=== PATIENT | female | born 1955 | race Caucasian/White ===

== ENCOUNTER 2019-09-06 17:42 | Observation (INO) | payer OTHER, MEDICARE ==
[2019-09-06 17:52] VITALS: BMI 41.5
--- NOTE | 2019-09-06 20:04 | PDOC ---
Attending Attestation - Resident Resident Name: Faheem Mcmillan - ED Attending Attestation I have performed the following: I have examined & evaluated the patient, The case was reviewed & discussed with the resident, I agree w/resident's findings & plan - HPI HPI: 09/07/19 00:35 see resident hpi - Physicial Exam PE: 09/07/19 00:35 agree with resident exam - Medical Decision Making 09/07/19 00:35 63-year-old female complaining of the worst headache of her life and lightheadedness CT scan of the brain showed no acute bleed Patient states she has a tendency to bleed easily, worsened when taking NSAIDs Discussion of lumbar puncture at the bedside, patient states that she does not want the procedure and is aware that there is a small chance of undiagnosed bleeding CTA of the brain showed no structural abnormality We will admit to medical service for observation further evaluation and neurology consult
[2019-09-06 21:15] LABS: BASO % 0.6 % (0-2.0); EOS % 0.4 % (0-4.5); HEMATOCRIT 42.6 % (32.4-45.2); HEMOGLOBIN 14.9 GM/dL (10.7-15.3); LYMPH % 15.5 % (8-40); MCH 29.6 pg (25.7-33.7); MCHC 35.1 g/dl (32.0-36.0); MEAN CELL VOLUME 84.3 fl (80-96); MEAN PLT VOLUME 8.6 fl (7.5-11.1); MONO % 5.8 % (3.8-10.2); NEUT % 77.7 % (42.8-82.8); PLATELET COUNT 244 K/MM3 (134-434); RBC 5.05 M/mm3 (3.60-5.2); RDW 13.9 % (11.6-15.6); WHITE BLOOD COUNT 5.9 K/mm3 (4.0-10.0)
--- NOTE | 2019-09-06 21:18 | PDOC ---
History of Present Illness - General Chief Complaint: Lightheaded Stated Complaint: HBP/NAUSEA Time Seen by Provider: 09/06/19 20:04 History Source: Patient Exam Limitations: No Limitations - History of Present Illness Initial Comments: 09/06/19 21:10 63 yo female pmh HTN, COPD and DM presents to the ED with PICHARDO, worst of her life , that woke her up this am with associated dizziness and N/V. Pt notes her son pasted away from a stroke at 34 years ol and noted bleeding problems (no known bleeding disorder diagnoses however, pt states if she takes ASA or NSAIDs she bleeds). Pt states she has had PICHARDO in the past but this one is much different due to persistent severity, N/V and dizziness. Pt states her BP at home was over 190 systolic. Denies recent illness, travel, weakness or sensory deficits on 1 side, confusion, CP, SOB, abdominal pain back pain, changes in bowel or bladder habits. Past History - Past Medical History Allergies/Adverse Reactions: Allergies Allergy/AdvReac Type Severity Reaction Status Date / Time pregabalin [From Lyrica] Allergy Intermediate Rash Verified 09/06/19 17:52 hydrochlorothiazide Allergy Rash Verified 09/06/19 17:52 valsartan [From Diovan] Allergy NEURO Verified 09/06/19 17:52 CHANGES Home Medications: Ambulatory Orders Losartan Potassium [Cozaar] 100 mg PO DAILY 10/10/14 metFORMIN HCL [Glucophage] 1,000 mg PO BID 10/10/14 Metoprolol Tartrate 75 mg PO BID 09/06/19 COPD: No Diabetes: Yes HTN: Yes - Surgical History Abdominal Surgery: Yes (bowel obstruction) Appendectomy: Yes - Psycho Social/Smoking Cessation Hx Smoking Status: No Smoking History: Never smoked Years of Tobacco Use: 0 Have you smoked in the past 12 months: No Number of Cigarettes Smoked Daily: 0 Cigars Per Day: 0 Hx Alcohol Use: No Drug/Substance Use Hx: No Substance Use Type: None Hx Substance Use Treatment: No Review of Systems - Review of Systems Constitutional: Yes: See HPI HEENTM: Yes: See HPI Respiratory: Yes: See HPI Cardiac (ROS): Yes: See HPI ABD/GI: Yes: See HPI : Yes: See HPI Musculoskeletal: Yes: See HPI Integumentary: Yes: See HPI Neurological: Yes: See HPI *Physical Exam - Vital Signs Last Vital Signs Temp Pulse Resp BP Pulse Ox 98 F 83 18 161/72 98 09/06/19 17:46 09/06/19 17:46 09/06/19 17:46 09/06/19 17:46 09/06/19 17:46 - Physical Exam General Appearance: Yes: Nourished, Appropriately Dressed. No: Apparent Distress HEENT: positive: EOMI, SARAH, Normal Voice Neck: positive: Supple. negative: Carotid bruit, Rigidity, Tender midline Respiratory/Chest: positive: Lungs Clear, Normal Breath Sounds. negative: Respiratory Distress, Accessory Muscle Use, Rapid RR, Crackles, Rales, Rhonchi, Stridor, Wheezing Cardiovascular: positive: Regular Rhythm, Regular Rate, S1, S2. negative: Edema , JVD, Murmur Vascular Pulses: Dorsalis-Pedis (R): 3+, Doralis-Pedis (L): 3+ Gastrointestinal/Abdominal: positive: Flat, Soft. negative: Pulsatile Mass, Distended, Guarding, Rebound, Tenderness Musculoskeletal: negative: CVA Tenderness Extremity: positive: Normal Capillary Refill, Normal Inspection, Normal Range of Motion Integumentary: positive: Normal Color, Dry, Warm Neurologic: positive: water/wastewater project manager II-XII NML intact, Fully Oriented, Alert, Normal Mood/ Affect, Normal Response, Motor Strength 5/5. negative: Facial Droop, Numbness, Sensory Deficit, Finger to Nose (normal), Confused, Disoriented ED Treatment Course - LABORATORY CBC & Chemistry Diagram: 09/07/19 06:15 09/07/19 06:15 - RADIOLOGY Radiology Studies Ordered: Category Date Time Status HEAD CT WITHOUT CONTRAST [CT] Stat CT Scan 09/06/19 21:03 Ordered CHEST X-RAY PORTABLE* [RAD] Stat Radiology 09/06/19 21:02 Ordered Medical Decision Making - Medical Decision Making 09/06/19 21:14 63 yo female pmh HTN, COPD and DM presents to the ED with PICHARDO, worst of her life , that woke her up this am with associated dizziness and N/V. Pt notes her son pasted away from a stroke at 34 years ol and noted bleeding problems (no known bleeding disorder diagnoses however, pt states if she takes ASA or NSAIDs she bleeds). Pt states she has had PICHARDO in the past but this one is much different due to persistent severity, N/V and dizziness. Pt states her BP at home was over 190 systolic. Denies recent illness, travel, weakness or sensory deficits on 1 side, confusion, CP, SOB, abdominal pain back pain, changes in bowel or bladder habits. pt hpi concerning for SAH or posterior bleed. Head Ct done immediately after evaluation, negative for acute bleed. Discussed LP with pt, shared decision making, states due to bleeding hx no LP at this time. WIll do CTA head and reassess s/o to night team Discharge - Discharge Information Problems reviewed: Yes Clinical Impression/Diagnosis: Lightheadedness, Headache Condition: Guarded Disposition: AGAINST MEDICAL ADVICE - Follow up/Referral - Patient Discharge Instructions - Post Discharge Activity
[2019-09-06 21:29] LABS: INR 0.93 (0.83-1.09)
[2019-09-06 21:32] LABS: ACTIVATED PTT 28.3 SECONDS (25.2-36.5)
[2019-09-06 21:52] LABS: ALBUMIN 3.8 g/dl (3.4-5.0); BILIRUBIN,TOTAL 0.5 mg/dL (0.2-1); BLOOD UREA NITROGEN 14.2 mg/dL (7-18); CALCIUM 9.7 mg/dL (8.5-10.1); CREATININE 0.7 mg/dL (0.55-1.3); TOT PROT 7.5 g/dl (6.4-8.2)
[2019-09-06 21:53] LABS: POTASSIUM 4.6 mmol/L (3.5-5.1)
[2019-09-06] MEDS ORDERED: metFORMIN HCL 500 MG TABLET (FP) PO ONE (21:55)
[2019-09-06] MEDS ORDERED: METOCLOPRAMIDE HCL INJECTION 10 MG/2 ML VIAL IVPUSH ONE (22:48)
[2019-09-06] MEDS ORDERED: ACETAMINOPHEN 1000 MG/100 ML VIAL (NON FORMULARY) IVPB ONE (22:48)
[2019-09-06] MEDS ORDERED: ACETAMINOPHEN INJECTION 100 ML IVPB ONE (23:48)
[2019-09-06] MEDS ORDERED: METOCLOPRAMIDE HCL INJECTION 10 MG/2 ML VIAL ONE (23:48)
--- NOTE | 2019-09-07 01:18 | HP ---
Admitting History and Physical - Primary Care Physician PCP: Callum Jain - Admission Chief Complaint: Headache, Dizziness History of Present Illness: This is a 63 y/o woman with a PMHx of HTN, DM, COPD, MARY. Who presents to the ED with dizziness and headache x today. Patient describes the headache as sharp/ severe with nausea. Patient reports increased dizziness with movement. Patient denies recent fall or trauma. Patient denies fever, chills, SOB, CP, palpitations, AP, V/D, constipation, dysuria. Patient reports familial hx CVA. ED Course was noted for: (1) Head CT- moderate volume/loss, no evidence of acute intracranial pathology. moderate deviation of nasal septum towards the right (2) Head CTA- widely patent and normal caliber arteries in the anterior and posterior circulation with no evidence of focal aneursym (3) EKG- NSR RBBB, T wave abnormality History Source: Patient Limitations to Obtaining History: No Limitations - Past Medical History Cardiovascular: Yes: HTN Pulmonary: Yes: COPD Gastrointestinal: Yes: Other (SBO) Endocrine: Yes: Diabetes Mellitus - Past Surgical History Past Surgical History: Yes: Appendectomy, Hysterectomy - Smoking History Smoking history: Never smoked Have you smoked in the past 12 months: No Aproximately how many cigarettes per day: 0 - Alcohol/Substance Use Hx Alcohol Use: No History of Substance Use: reports: None - Social History Usual Living Arrangement: Yes: Other (family) ADL: Independent History of Recent Travel: No Home Medications - Allergies Allergies/Adverse Reactions: Allergies Allergy/AdvReac Type Severity Reaction Status Date / Time pregabalin [From Lyrica] Allergy Intermediate Rash Verified 09/06/19 17:52 hydrochlorothiazide Allergy Rash Verified 09/06/19 17:52 valsartan [From Diovan] Allergy NEURO Verified 09/06/19 17:52 CHANGES - Home Medications Home Medications: Ambulatory Orders Losartan Potassium [Cozaar] 100 mg PO DAILY 10/10/14 metFORMIN HCL [Glucophage] 1,000 mg PO BID 10/10/14 Metoprolol Tartrate 75 mg PO BID 09/06/19 Family Medical History Family Hx Nuerologic Problems: Son (CVA- age in 30's) Review of Systems - Review of Systems Constitutional: reports: No Symptoms Eyes: reports: No Symptoms HENT: reports: No Symptoms Neck: reports: No Symptoms Cardiovascular: reports: No Symptoms Respiratory: reports: No Symptoms Gastrointestinal: reports: Nausea Genitourinary: reports: No Symptoms Breasts: reports: No Symptoms Reported Musculoskeletal: reports: No Symptoms Integumentary: reports: No Symptoms Neurological: reports: Dizziness, Headache, Syncope (Pre) Endocrine: reports: No Symptoms Hematology/Lymphatic: reports: No Symptoms Psychiatric: reports: No Symptoms Pain Intensity: 4 Physical Examination Vital Signs: Vital Signs Temperature 98.2 F 09/06/19 21:52 Pulse Rate 81 09/06/19 21:52 Respiratory Rate 15 09/06/19 21:52 Blood Pressure 162/90 09/06/19 21:52 O2 Sat by Pulse Oximetry (%) 97 09/06/19 21:52 Constitutional: Yes: Well Nourished, No Distress, Calm, Obese Eyes: Yes: WNL, Conjunctiva Clear, EOM Intact, PERRL HENT: Yes: WNL, Atraumatic, Normocephalic Neck: Yes: WNL, Supple, Trachea Midline Cardiovascular: Yes: WNL, Regular Rate and Rhythm, S1, S2 Respiratory: Yes: Diminished Gastrointestinal: Yes: WNL, Normal Bowel Sounds, Soft, Abdomen, Obese ...Rectal Exam: Yes: Deferred Renal/: Yes: WNL Breast(s): Yes: WNL Musculoskeletal: Yes: WNL Extremities: Yes: WNL Edema: Yes Edema: LLE: Trace, RLE: Trace Peripheral Pulses WNL: Yes Integumentary: Yes: WNL Neurological: Yes: WNL, Alert, Oriented, Cran Nerves II-XII Intact ...Motor Strength: WNL Psychiatric: Yes: WNL, Alert, Oriented Labs: CBC, BMP 09/06/19 20:20 09/06/19 20:20 Laboratory Results - last 24 hr 09/06/19 09/06/19 09/06/19 20:20 20:20 20:20 WBC 5.9 RBC 5.05 Hgb 14.9 Hct 42.6 MCV 84.3 MCH 29.6 MCHC 35.1 RDW 13.9 Plt Count 244 MPV 8.6 Absolute Neuts (auto) 4.6 Neutrophils % 77.7 D Lymphocytes % 15.5 D Monocytes % 5.8 Eosinophils % 0.4 Basophils % 0.6 Nucleated RBC % 0 PT with INR 11.00 INR 0.93 PTT (Actin FS) 28.3 Sodium Potassium Chloride Carbon Dioxide Anion Gap BUN Creatinine Est GFR (CKD-EPI)AfAm Est GFR (CKD-EPI)NonAf Random Glucose Calcium Total Bilirubin AST ALT Alkaline Phosphatase Creatine Kinase 121 Troponin I < 0.02 Total Protein Albumin 09/06/19 20:20 WBC RBC Hgb Hct MCV MCH MCHC RDW Plt Count MPV Absolute Neuts (auto) Neutrophils % Lymphocytes % Monocytes % Eosinophils % Basophils % Nucleated RBC % PT with INR INR PTT (Actin FS) Sodium 136 Potassium 4.6 Chloride 101 Carbon Dioxide 26 Anion Gap 9 BUN 14.2 Creatinine 0.7 Est GFR (CKD-EPI)AfAm 106.87 Est GFR (CKD-EPI)NonAf 92.21 Random Glucose 193 H Calcium 9.7 Total Bilirubin 0.5 AST 38 H ALT 36 Alkaline Phosphatase 92 Creatine Kinase Troponin I Total Protein 7.5 Albumin 3.8 Intake & Output 09/04/19 09/05/19 09/06/19 09/07/19 23:59 23:59 23:59 23:59 Weight 113.398 kg Current Medications Generic Name Dose Route Start Last Admin Trade Name Freq PRN Reason Stop Dose Admin Losartan Potassium 100 mg 09/07/19 10:00 Cozaar - PO DAILY WEST Metoprolol Tartrate 75 mg 09/07/19 10:00 Lopressor - PO BID WEST Imaging - Results Chest X-ray: Report Reviewed, Image Reviewed Cat Scan: Report Reviewed, Image Reviewed EKG: Image Reviewed Problem List - Problems (1) Pre-syncope Assessment/Plan: r/o Stroke vs Arrhythmia Continue cardiac monitoring Head CT- moderate volume/loss, no evidence of acute intracranial pathology Head CTA- widely patent and normal caliber arteries in the anterior and posterior circulation with no evidence of focal aneursym Appreciate Neurology consult Neurochecks Orthostatics Fall Precautions Monitor CBC, BMP Code(s): R55 - SYNCOPE AND COLLAPSE (2) Headache Assessment/Plan: See above Tylenol prn Code(s): R51 - HEADACHE (3) COPD (chronic obstructive pulmonary disease) Assessment/Plan: stable No acute flair Duonebs prn O2, prn Code(s): J44.9 - CHRONIC OBSTRUCTIVE PULMONARY DISEASE, UNSPECIFIED (4) HTN (hypertension) Assessment/Plan: stable Monitor BP Continue home meds Monitor renal function Code(s): I10 - ESSENTIAL (PRIMARY) HYPERTENSION (5) Diabetes mellitus Assessment/Plan: stable BGMs Hold Metformin secondary to CTA ISS Code(s): E11.9 - TYPE 2 DIABETES MELLITUS WITHOUT COMPLICATIONS Assessment/Plan This is a 63 y/o woman with a PMHx of HTN, DM, COPD, MARY (on CPAP). Placed in Telemetry Observation for Presyncope, Headache for further evaluation of their emergent condition. Plan: See Problem List FEN PO fluids as tolerated Replete lytes prn Low Na, Diabetic Diet DVT ppx OOB SCDs Consider AC if LOS> 48hrs Dispo: Observation Visit type - Emergency Visit Emergency Visit: Yes ED Registration Date: 09/06/19 Care time: The patient presented to the Emergency Department on the above date and was hospitalized for further evaluation of their emergent condition. - New Patient This patient is new to me today: Yes Date on this admission: 09/07/19 - Critical Care Critical Care patient: No
[2019-09-07] MEDS ORDERED: ACETAMINOPHEN 325 MG TABLET (FP) PO PRN (01:25)
[2019-09-07 06:54] LABS: BASO % 0.7 % (0-2.0); EOS % 0.6 % (0-4.5); LYMPH % 30.5 % (8-40); MCHC 34.2 g/dl (32.0-36.0); MEAN CELL VOLUME 84.8 fl (80-96); MEAN PLT VOLUME 8.1 fl (7.5-11.1); NEUT % 54.2 % (42.8-82.8); PLATELET COUNT 218 K/MM3 (134-434); RBC 4.83 M/mm3 (3.60-5.2); RDW 13.5 % (11.6-15.6); WHITE BLOOD COUNT 5.2 K/mm3 (4.0-10.0)
[2019-09-07 07:18] LABS: BLOOD UREA NITROGEN 17.4 mg/dL (7-18); CALCIUM 9.1 mg/dL (8.5-10.1); CREATININE 0.7 mg/dL (0.55-1.3); POTASSIUM 3.4 mmol/L (3.5-5.1)
--- NOTE | 2019-09-07 08:35 | CONSULT ---
Consult - text type - Consultation Consultation Note: Neurology - Primary Care Physician PCP: Callum Jain - Admission Chief Complaint: Headache, Dizziness History Source: Patient Limitations to Obtaining History: No Limitations - History of Present Illness 63 yo female pmh HTN, COPD and DM presented to the ED with PICHARDO, worst of her life , that woke her up with associated dizziness and N/V. Pt noted her son from a stroke at 34 years old and noted bleeding problems (no known bleeding disorder diagnoses however, pt stated if she takes ASA or NSAIDs she bleeds). Pt stated she has had PICHARDO in the past but this one was much different due to persistent severity, N/V and dizziness. Pt stated her BP at home was over 190 systolic. Denied recent illness, travel, weakness or sensory deficits on 1 side, confusion, CP, SOB, abdominal pain back pain, changes in bowel or bladder habits. Ct of head performed and demonstrated moderate volume loss without evidence of acute intracranial pathology. CTA of Head completed and awaiting official report. There was concern regarding possible subarachnoid hemorrhage which was the reason for having the CTA. However, her headaches significantly improved and is essentially resolved this morning. Unlikely to have subarachnoid hemorrhage at this point, lumbar puncture does not seem necessary. Can continue evaluation for presyncopal sensations and cardiac workup. - Past Medical History Cardiovascular: Yes: HTN Pulmonary: Yes: COPD Gastrointestinal: Yes: Other (SBO) Endocrine: Yes: Diabetes Mellitus - Past Surgical History Past Surgical History: Yes: Appendectomy, Hysterectomy - Smoking History Smoking history: Never smoked Have you smoked in the past 12 months: No Aproximately how many cigarettes per day: 0 - Alcohol/Substance Use Hx Alcohol Use: No History of Substance Use: reports: None - Social History Usual Living Arrangement: Yes: Other (family) ADL: Independent History of Recent Travel: No Family Medical History Family History: HTN Review of Systems - Review of Systems Constitutional: reports: No Symptoms Eyes: reports: No Symptoms HENT: reports: No Symptoms Neck: reports: No Symptoms Cardiovascular: reports: No Symptoms Respiratory: reports: No Symptoms Gastrointestinal: reports: No Symptoms Genitourinary: reports: No Symptoms Breasts: reports: No Symptoms Reported Musculoskeletal: reports: No Symptoms Integumentary: reports: No Symptoms Neurological: reports: Dizziness, Headache, Syncope (Pre) Endocrine: reports: No Symptoms Hematology/Lymphatic: reports: No Symptoms Psychiatric: reports: No Symptoms Pain Intensity: 4 Home Medications - Allergies Allergies/Adverse Reactions: Allergies Allergy/AdvReac Type Severity Reaction Status Date / Time pregabalin [From Lyrica] Allergy Intermediate Rash Verified 09/06/19 17:52 hydrochlorothiazide Allergy Rash Verified 09/06/19 17:52 valsartan [From Diovan] Allergy NEURO Verified 09/06/19 17:52 CHANGES - Home Medications Home Medications: Ambulatory Orders Losartan Potassium [Cozaar] 100 mg PO DAILY 10/10/14 metFORMIN HCL [Glucophage] 1,000 mg PO BID 10/10/14 Metoprolol Tartrate 75 mg PO BID 09/06/19 Active Medications Acetaminophen (Tylenol -) 650 mg PO Q6H PRN PRN Reason: PAIN LEVEL 6-10 Losartan Potassium (Cozaar -) 100 mg PO DAILY [facility] Metoprolol Tartrate 50 mg/ (Metoprolol Tartrate 25 mg) 75 mg PO BID [facility] Physical Examination Vital Signs: Vital Signs Period Temp Pulse Resp BP Sys/Verdugo Pulse Ox Last 24 Hr 98 F-98.8 F 69-83 15-18 129-162/63-90 95-98 Constitutional: Yes: Well Nourished, No Distress, Calm, Obese Eyes: Yes: WNL, Conjunctiva Clear, EOM Intact, PERRL HENT: Yes: WNL, Atraumatic, Normocephalic Neck: Yes: WNL, Supple, Trachea Midline Cardiovascular: Yes: WNL, Regular Rate and Rhythm, S1, S2 Respiratory: Yes: Diminished Gastrointestinal: Yes: WNL, Normal Bowel Sounds, Soft, Abdomen, Obese ...Rectal Exam: Yes: Deferred Renal/: Yes: WNL Breast(s): Yes: WNL Musculoskeletal: Yes: WNL Extremities: Yes: WNL Edema: Yes Edema: LLE: Trace, RLE: Trace Peripheral Pulses WNL: Yes Integumentary: Yes: WNL Neurological: Yes: WNL, Alert, Oriented, Cran Nerves II-XII Intact ...Motor Strength: WNL Psychiatric: Yes: WNL, Alert, Oriented Labs: CBCD WBC 5.2 K/mm3 (4.0-10.0) 09/07/19 06:15 RBC 4.83 M/mm3 (3.60-5.2) 09/07/19 06:15 Hgb 14.0 GM/dL (10.7-15.3) 09/07/19 06:15 Hct 41.0 % (32.4-45.2) 09/07/19 06:15 MCV 84.8 fl (80-96) 09/07/19 06:15 MCHC 34.2 g/dl (32.0-36.0) 09/07/19 06:15 RDW 13.5 % (11.6-15.6) 09/07/19 06:15 Plt Count 218 K/MM3 (134-434) 09/07/19 06:15 MPV 8.1 fl (7.5-11.1) 09/07/19 06:15 CMP Sodium 139 mmol/L (136-145) 09/07/19 06:15 Potassium 3.4 mmol/L (3.5-5.1) L 09/07/19 06:15 Chloride 102 mmol/L (98-107) 09/07/19 06:15 Carbon Dioxide 30 mmol/L (21-32) 09/07/19 06:15 Anion Gap 7 MMOL/L (8-16) L 09/07/19 06:15 BUN 17.4 mg/dL (7-18) 09/07/19 06:15 Creatinine 0.7 mg/dL (0.55-1.3) 09/07/19 06:15 Random Glucose 147 mg/dL (74-106) H 09/07/19 06:15 Calcium 9.1 mg/dL (8.5-10.1) 09/07/19 06:15 Total Bilirubin 0.5 mg/dL (0.2-1) 09/06/19 20:20 AST 38 U/L (15-37) H 09/06/19 20:20 ALT 36 U/L (13-61) 09/06/19 20:20 Alkaline Phosphatase 92 U/L (45-117) 09/06/19 20:20 Total Protein 7.5 g/dl (6.4-8.2) 09/06/19 20:20 Albumin 3.8 g/dl (3.4-5.0) 09/06/19 20:20 CARDIAC ENZYMES Creatine Kinase 121 U/L (26-192) 09/06/19 20:20 Troponin I < 0.02 ng/ml (0.00-0.05) 09/06/19 20:20 Assessment/Plan 63 yo female pmh HTN, COPD and DM presented to the ED with PICHARDO, worst of her life , that woke her up with associated dizziness and N/V. Pt noted her son from a stroke at 34 years old and noted bleeding problems (no known bleeding disorder diagnoses however, pt stated if she takes ASA or NSAIDs she bleeds). Pt stated she has had PICHARDO in the past but this one was much different due to persistent severity, N/V and dizziness. Pt stated her BP at home was over 190 systolic. Denied recent illness, travel, weakness or sensory deficits on 1 side, confusion, CP, SOB, abdominal pain back pain, changes in bowel or bladder habits. Ct of head performed and demonstrated moderate volume loss without evidence of acute intracranial pathology. CTA of Head completed and awaiting official report. There was concern regarding possible subarachnoid hemorrhage which was the reason for having the CTA. However, her headaches significantly improved and is essentially resolved this morning. Unlikely to have subarachnoid hemorrhage at this point, lumbar puncture does not seem necessary. Can continue evaluation for presyncopal sensations and cardiac workup. Monitor blood pressure, maintain less than 140/90. Monitor glucose, maintain euglycemic range. Recommend continued hydration and cognitive rest. Follow-up CTA results/report. Can take Tylenol or Fioricet for headache if needed. Not more than 3X per day or 3 days per week, which can precipitate rebound and medication overuse headaches.
[2019-09-07] MEDS ORDERED: METOPROLOL TARTRATE 25 MG TABLET (FP) ONE (09:30)
[2019-09-07] MEDS ORDERED: LOSARTAN POTASSIUM 50 MG TABLET (FP) ONE (09:30)
[2019-09-07] MEDS ORDERED: METOPROLOL TARTRATE 50 MG TABLET (FP) ONE (09:30)
[2019-09-07] MEDS: METOPROLOL TARTRATE 50 MG, METOPROLOL TARTRATE 25 MG PO SCH ×2 (09:33→22:41)
--- NOTE | 2019-09-07 09:52 | PN ---
Progress Note, Physician Chief Complaint: Presyncope Headache History of Present Illness: Previous notes and events reviewed awake and alert NAD denies complaints of headache, visual disturbance, or dizziness no reports of nausea or vomiting - Current Medication List Current Medications: Active Medications Acetaminophen (Tylenol -) 650 mg PO Q6H PRN PRN Reason: PAIN LEVEL 6-10 Losartan Potassium (Cozaar -) 100 mg PO DAILY [facility] Last Admin: 09/07/19 09:33 Dose: 100 mg Metoprolol Tartrate 50 mg/ (Metoprolol Tartrate 25 mg) 75 mg PO BID [facility] Last Admin: 09/07/19 09:33 Dose: 75 mg - Objective Vital Signs: Vital Signs Temperature 98.8 F 09/07/19 06:00 Pulse Rate 79 09/07/19 06:00 Respiratory Rate 16 09/07/19 06:00 Blood Pressure 154/84 09/07/19 06:00 O2 Sat by Pulse Oximetry (%) 95 09/07/19 09:03 Constitutional: Yes: No Distress, Calm, Obese Eyes: Yes: Conjunctiva Clear HENT: Yes: Atraumatic Cardiovascular: Yes: Regular Rate and Rhythm Respiratory: Yes: Regular, CTA Bilaterally Gastrointestinal: Yes: Normal Bowel Sounds, Soft, Abdomen, Obese Musculoskeletal: Yes: Muscle Weakness Extremities: Yes: WNL Edema: No Neurological: Yes: Alert, Oriented, Other (no facial droop, no slurred speech, equal bilateral strength shipping manager) Psychiatric: Yes: Alert, Oriented Labs: CBC, BMP 09/07/19 06:15 09/07/19 06:15 INR, PTT INR 0.93 (0.83-1.09) 09/06/19 20:20 Problem List - Problems (1) Pre-syncope Assessment/Plan: -Neurology on board -Head CT scan shows moderate volume loss without CT evidence of acute intracranial pathology, moderate deviation of the nasal septum towards the right -Head CTA official result pending -Neuro checks q4h -Carotid US -troponin neg x 1 -tele monitoring -fall precaution -lipid panel -Cardiology consult Code(s): R55 - SYNCOPE AND COLLAPSE (2) Headache Assessment/Plan: -Neurology on board -Head CT scan shows moderate volume loss without CT evidence of acute intracranial pathology, moderate deviation of the nasal septum towards the right -Head CTA official result pending -Neuro checks q4h -Carotid US -pain control Code(s): R51 - HEADACHE (3) HTN (hypertension) Assessment/Plan: -Losartan, Metoprolol -low Na diet Code(s): I10 - ESSENTIAL (PRIMARY) HYPERTENSION (4) Diabetes mellitus Assessment/Plan: -Metformin -BGM ACHS -ISS Code(s): E11.9 - TYPE 2 DIABETES MELLITUS WITHOUT COMPLICATIONS (5) COPD (chronic obstructive pulmonary disease) Assessment/Plan: -Pulmonary consult -keep SpO2 >90% -O2 via [place] Code(s): J44.9 - CHRONIC OBSTRUCTIVE PULMONARY DISEASE, UNSPECIFIED Assessment/Plan see problem list
[2019-09-07] MEDS ORDERED: METOPROLOL TARTRATE 50 MG TABLET (FP) PO SCH (10:00)
[2019-09-07] MEDS ORDERED: LOSARTAN POTASSIUM 50 MG TABLET (FP) PO SCH (10:00)
--- NOTE | 2019-09-07 10:36 | EKG ---
Test Reason : Blood Pressure : / mmHG Vent. Rate : 077 BPM Atrial Rate : 077 BPM P-R Int : 150 ms QRS Dur : 152 ms QT Int : 454 ms P-R-T Axes : 059 039 007 degrees QTc Int : 513 ms POOR DATA QUALITY, INTERPRETATION MAY BE ADVERSELY AFFECTED NORMAL SINUS RHYTHM POSSIBLE LEFT ATRIAL ENLARGEMENT RIGHT BUNDLE BRANCH BLOCK T WAVE ABNORMALITY, CONSIDER LATERAL ISCHEMIA ABNORMAL ECG WHEN COMPARED WITH ECG OF 16-JUL-2013 17:23, NO SIGNIFICANT CHANGE WAS FOUND Confirmed by NGHIA MORTON MD ([id number]) on 09/07/2019 10:35:47 AM Referred By: Confirmed By:NGHIA MORTON MD
[2019-09-07 10:48] VITALS: TEMP 98.2
[2019-09-07] MEDS: INSULIN SLIDING SCALE (NOVOLOG) 1 VIAL SQ SCH ×3 (11:31→22:41)
--- NOTE | 2019-09-07 15:40 | CON.PULM ---
Consult Consult Specialty:: PULMONARY Referred by:: Dr Barrera Reason for Consultation:: COPD - History of Present Illness Chief Complaint: headache History of Present Illness: 63yo female with h/o HTN, DM, COPD who was admitted with dizziness and headache. Found to have elevated blood pressures. Denies shortness of breath or chest pain. No fevers, chills or sweats. No recent sicknesses. Imaging unremarkable and blood pressures have improved. She reports feeling much improved, back to baseline. - History Source History Provided By: Patient, Medical Record Limitations to Obtaining History: No Limitations - Past Medical History Cardio/Vascular: Yes: HTN Pulmonary: Yes: COPD Gastrointestinal: Yes: Other (SBO) Endocrine: Yes: Diabetes Mellitus - Past Surgical History Past Surgical History: Yes: Appendectomy, Hysterectomy - Alcohol/Substance Use Hx Alcohol Use: No History of Substance Use: reports: None - Smoking History Smoking history: Never smoked Have you smoked in the past 12 months: No Aproximately how many cigarettes per day: 0 - Social History ADL: Independent History of Recent Travel: No Home Medications - Allergies Allergies/Adverse Reactions: Allergies Allergy/AdvReac Type Severity Reaction Status Date / Time pregabalin [From Lyrica] Allergy Intermediate Rash Verified 09/06/19 17:52 hydrochlorothiazide Allergy Rash Verified 09/06/19 17:52 valsartan [From Diovan] Allergy NEURO Verified 09/06/19 17:52 CHANGES - Home Medications Home Medications: Ambulatory Orders Losartan Potassium [Cozaar] 100 mg PO DAILY 10/10/14 metFORMIN HCL [Glucophage] 1,000 mg PO BID 10/10/14 Metoprolol Tartrate 75 mg PO BID 09/06/19 Review of Systems - Review of Systems Constitutional: denies: Chills, Fever Eyes: denies: Recent Change in Vision HENT: denies: Nasal Congestion, Throat Pain Neck: denies: Stiffness, Tenderness Cardiovascular: denies: Chest Pain, Shortness of Breath Respiratory: denies: Cough, Wheezing Gastrointestinal: reports: Nausea, Vomiting Genitourinary: denies: Dysuria, Hematuria Neurological: reports: Dizziness, Headache Endocrine: denies: Unexplained Weight Loss Physical Exam Vital Sings: Vital Signs Temperature 98.2 F 09/07/19 10:47 Pulse Rate 71 09/07/19 10:47 Respiratory Rate 16 09/07/19 10:47 Blood Pressure 147/73 09/07/19 10:47 O2 Sat by Pulse Oximetry (%) 100 09/07/19 10:47 Constitutional: Yes: Calm Eyes: Yes: Conjunctiva Clear, EOM Intact HENT: Yes: Atraumatic, Normocephalic Neck: Yes: Supple, Trachea Midline Cardiovascular: Yes: Regular Rate and Rhythm Respiratory: Yes: Diminished (decreased breath sounds at the bases) ...Clubbing: No Gastrointestinal: Yes: Normal Bowel Sounds, Soft. No: Tenderness Edema: No Neurological: Yes: Alert, Oriented Labs: CBC, BMP 09/07/19 06:15 09/07/19 06:15 Imaging - Results Chest X-ray: Report Reviewed, Image Reviewed (cardiomegaly, no infiltrates) Problem List - Problems (1) Headache Code(s): R51 - HEADACHE Assessment/Plan Headache improved HTN DM COPD - inhaled bronchodilators as needed - BP control - neuro work up - DVT prophylaxis Thank you for this consult Wilfredo Gómez MD
[2019-09-07] MEDS ORDERED: metFORMIN HCL 500 MG TABLET (FP) PO SCH (16:30)
[2019-09-07 22:34] VITALS: BP 161/70; PULSE 93
--- NOTE | 2019-09-07 23:12 | HOSP ---
Subjective - Review of Symptoms Events since last encounter: Hospitalist Encounter Notified by the evening nursing warehouse traffic supervisor and primary RN, that the patient was told she was being discharged earlier today by the primary [employer] [employer]. After review of the notes, no discharge indicated. Call placed to Bro[facility] Jade [employer], left voice message with my cell number. No response Was called again by the nursing warehouse traffic supervisor patient is now adamant on leaving AMA I went down to the ED spoke with the patient, who is refusing further care. Attempts made to have the patient reconsider- unsuccessful Risks and dangers discussed with patient, who verbalized understanding. Patient signed AMA Patient left the ED with her cane, with the evening nursing warehouse traffic supervisor. Physical Examination Vital Signs: Vital Signs Temperature 98.2 F 09/07/19 18:00 Pulse Rate 93 H 09/07/19 22:33 Respiratory Rate 18 09/07/19 22:33 Blood Pressure 161/70 09/07/19 22:33 O2 Sat by Pulse Oximetry (%) 96 09/07/19 22:33 Labs: CBC, BMP 09/07/19 06:15 09/07/19 06:15
--- NOTE | 2019-09-08 08:48 | PN ---
Progress Note (short form) - Note Progress Note: Neurology - Primary Care Physician PCP: Callum Jain - Admission Chief Complaint: Headache, Dizziness History Source: Patient Limitations to Obtaining History: No Limitations - History of Present Illness 63 yo female pmh HTN, COPD and DM presented to the ED with PICHARDO, worst of her life , that woke her up with associated dizziness and N/V. Pt noted her son from a stroke at 34 years old and noted bleeding problems (no known bleeding disorder diagnoses however, pt stated if she takes ASA or NSAIDs she bleeds). Pt stated she has had PICHARDO in the past but this one was much different due to persistent severity, N/V and dizziness. Pt stated her BP at home was over 190 systolic. Denied recent illness, travel, weakness or sensory deficits on 1 side, confusion, CP, SOB, abdominal pain back pain, changes in bowel or bladder habits. Ct of head performed and demonstrated moderate volume loss without evidence of acute intracranial pathology. CTA of Head completed and awaiting official report. There was concern regarding possible subarachnoid hemorrhage which was the reason for having the CTA. However, her headaches significantly improved and is essentially resolved this morning. Unlikely to have subarachnoid hemorrhage at this point, lumbar puncture does not seem necessary. Can continue evaluation for presyncopal sensations and cardiac workup. Active Medications Acetaminophen (Tylenol -) 650 mg PO Q6H PRN PRN Reason: PAIN LEVEL 6-10 Insulin Aspart (Novolog Vial Sliding Scale -) 1 vial SQ ACHS [facility]; Protocol Last Admin: 09/07/19 22:41 Dose: Not Given Losartan Potassium (Cozaar -) 100 mg PO DAILY [facility] Last Admin: 09/07/19 09:33 Dose: 100 mg Metformin HCl (Glucophage -) 1,000 mg PO BIDAC [facility] Last Admin: 09/07/19 18:25 Dose: Not Given Metoprolol Tartrate 50 mg/ (Metoprolol Tartrate 25 mg) 75 mg PO BID [facility] Last Admin: 09/07/19 22:41 Dose: Not Given Physical Examination Vital Signs: Vital Signs Period Temp Pulse Resp BP Sys/Verdugo Pulse Ox Last 24 Hr 98.2 F-98.2 F 71-93 16-18 140-161/70-73 95-100 Constitutional: Yes: Well Nourished, No Distress, Calm, Obese Eyes: Yes: WNL, Conjunctiva Clear, EOM Intact, PERRL HENT: Yes: WNL, Atraumatic, Normocephalic Neck: Yes: WNL, Supple, Trachea Midline Cardiovascular: Yes: WNL, Regular Rate and Rhythm, S1, S2 Respiratory: Yes: Diminished Gastrointestinal: Yes: WNL, Normal Bowel Sounds, Soft, Abdomen, Obese ...Rectal Exam: Yes: Deferred Renal/: Yes: WNL Breast(s): Yes: WNL Musculoskeletal: Yes: WNL Extremities: Yes: WNL Edema: Yes Edema: LLE: Trace, RLE: Trace Peripheral Pulses WNL: Yes Integumentary: Yes: WNL Neurological: Yes: WNL, Alert, Oriented, Cran Nerves II-XII Intact ...Motor Strength: WNL Psychiatric: Yes: WNL, Alert, Oriented Labs: CBCD WBC 5.2 K/mm3 (4.0-10.0) 09/07/19 06:15 RBC 4.83 M/mm3 (3.60-5.2) 09/07/19 06:15 Hgb 14.0 GM/dL (10.7-15.3) 09/07/19 06:15 Hct 41.0 % (32.4-45.2) 09/07/19 06:15 MCV 84.8 fl (80-96) 09/07/19 06:15 MCHC 34.2 g/dl (32.0-36.0) 09/07/19 06:15 RDW 13.5 % (11.6-15.6) 09/07/19 06:15 Plt Count 218 K/MM3 (134-434) 09/07/19 06:15 MPV 8.1 fl (7.5-11.1) 09/07/19 06:15 CMP Sodium 139 mmol/L (136-145) 09/07/19 06:15 Potassium 3.4 mmol/L (3.5-5.1) L 09/07/19 06:15 Chloride 102 mmol/L (98-107) 09/07/19 06:15 Carbon Dioxide 30 mmol/L (21-32) 09/07/19 06:15 Anion Gap 7 MMOL/L (8-16) L 09/07/19 06:15 BUN 17.4 mg/dL (7-18) 09/07/19 06:15 Creatinine 0.7 mg/dL (0.55-1.3) 09/07/19 06:15 Random Glucose 147 mg/dL (74-106) H 09/07/19 06:15 Calcium 9.1 mg/dL (8.5-10.1) 09/07/19 06:15 Total Bilirubin 0.5 mg/dL (0.2-1) 09/06/19 20:20 AST 38 U/L (15-37) H 09/06/19 20:20 ALT 36 U/L (13-61) 09/06/19 20:20 Alkaline Phosphatase 92 U/L (45-117) 09/06/19 20:20 Total Protein 7.5 g/dl (6.4-8.2) 09/06/19 20:20 Albumin 3.8 g/dl (3.4-5.0) 09/06/19 20:20 CARDIAC ENZYMES Creatine Kinase 121 U/L (26-192) 09/06/19 20:20 Troponin I < 0.02 ng/ml (0.00-0.05) 09/06/19 20:20 Assessment/Plan 63 yo female pmh HTN, COPD and DM presented to the ED with PICHARDO, worst of her life , that woke her up with associated dizziness and N/V. Pt noted her son from a stroke at 34 years old and noted bleeding problems (no known bleeding disorder diagnoses however, pt stated if she takes ASA or NSAIDs she bleeds). Pt stated she has had PICHARDO in the past but this one was much different due to persistent severity, N/V and dizziness. Pt stated her BP at home was over 190 systolic. Denied recent illness, travel, weakness or sensory deficits on 1 side, confusion, CP, SOB, abdominal pain back pain, changes in bowel or bladder habits. Ct of head performed and demonstrated moderate volume loss without evidence of acute intracranial pathology. CTA of Head completed and awaiting official report. There was concern regarding possible subarachnoid hemorrhage which was the reason for having the CTA. However, her headaches significantly improved and is essentially resolved this morning. Unlikely to have subarachnoid hemorrhage at this point, lumbar puncture does not seem necessary. Can continue evaluation for presyncopal sensations and cardiac workup. Monitor blood pressure, maintain less than 140/90. Monitor glucose, maintain euglycemic range. Recommend continued hydration and cognitive rest. Follow-up CTA results/report. Can take Tylenol or Fioricet for headache if needed. Not more than 3X per day or 3 days per week, which can precipitate rebound and medication overuse headaches.
== END 2019-09-07 22:54 | disposition left against medical advice (07) ==
LOC: JER 17:42 → JERBED 22:46
PROVIDERS: ADMIT Internal Medicine; ATTEND Family Medicine
PROC: 3E033NZ Introduction of Analgesics, Hypnotics, Sedatives into Peripheral Vein, Percutaneous Approach (ICD-10-PCS; principal; 2019-09-06)
PROC: 3E033GC Introduction of Other Therapeutic Substance into Peripheral Vein, Percutaneous Approach (ICD-10-PCS; 2019-09-06)
DX: R55 Syncope and collapse (principal); R51 Headache; I10 Essential (primary) hypertension; E11.9 Type 2 diabetes mellitus without complications; J44.9 Chronic obstructive pulmonary disease, unspecified; G47.33 Obstructive sleep apnea (adult) (pediatric)
CPT/HCPCS: 36415; 70450-TC; 70496-TC; 71045-TC-FY; 80048; 80053; 82550; 82962; 84484; 85025; 85610; 85730; 93005; 93010; 93880-TC; 96374; 96375; 99285-25; G0378; J0131; Q9967